=== PATIENT | female | born 1980 | race Caucasian/White ===

== ENCOUNTER 2022-11-15 08:41 | Day surgery (SDC) | payer BC ==
[2022-11-13 12:02] VITALS: BMI 30.5
[2022-11-15] MEDS ORDERED: BUPIVACAINE HCL/PF 0.25% (2.5MG/ML) 10 ML VIAL ONE (11:09)
[2022-11-15] MEDS ORDERED: PROPOFOL 40 ML ONE (12:37)
[2022-11-15] MEDS ORDERED: MIDAZOLAM HCL 2 MG/2 ML SINGLE DOSE VIAL ONE (12:37)
[2022-11-15] MEDS ORDERED: SUCCINYLCHOLINE CHLORIDE 200 MG/10 ML SYRINGE ONE (12:37)
[2022-11-15] MEDS ORDERED: FENTANYL CITRATE/PF 50 MCG/ML VIAL ONE ×2 (13:28→13:44)
[2022-11-15] MEDS ORDERED: ONDANSETRON 4 MG/2 ML VIAL IVPUSH PRN (13:29)
[2022-11-15 14:19] VITALS: RESP 16
[2022-11-15 14:44] VITALS: TEMP 96.8
[2022-11-15 15:28] VITALS: BP 114/59; PULSE 78
== END 2022-11-15 15:20 | disposition home or self-care (01) ==
LOC: FASU 08:41
PROVIDERS: ATTEND Orthopaedic Surgery Sports Medicine
PROC: 0LN63ZZ Release Left Lower Arm and Wrist Tendon, Percutaneous Approach (ICD-10-PCS; principal; 2022-11-15 12:53)
DX: M77.11 Lateral epicondylitis, right elbow (principal)
CPT/HCPCS: 84703; 94760